=== PATIENT | male | born 1955 | race Caucasian/White ===

== ENCOUNTER 2018-10-08 13:40 | Emergency (ER) | payer MEDICARE ==
[~2018-10-08] VITALS: Ht 172.7 cm; Wt 88.5 kg
--- NOTE | 2018-10-08 14:00 | NUR ---
Assessment performed @ 1400. Documented at 1600.
--- NOTE | 2018-10-08 15:21 | Diagnostic Imaging Report ---
CT BRAIN [facility] HISTORY: Headache, right-sided numbness COMPARISON: None. TECHNIQUE: Noncontrast axial scans were obtained from skull base to the vertex. Coronal and sagittal reconstructions obtained from the axial data. One or more of the following dose reduction techniques were used: Automated exposure control, adjustment of the mA and/or kV according to patient size, and/or utilization of iterative reconstruction technique. Beam hardening artifacts obscure some details. DISCUSSION: Scalp/Skull: Unremarkable. Brain sulci: Appropriate for patient's age. Ventricles: Normal in size and configuration. No hydrocephalus. Extra-axial spaces: No masses or fluid collections. Carotid siphon calcifications are present. Parenchyma: Small focal hypodensity along the anterior left thalamus may be due to age indeterminate lacunar infarct. Prominent perivascular spaces are seen along the basal ganglia, left greater than right. Mild periventricular white matter hypodensities are likely chronic microvascular ischemic changes. Otherwise, no masses, hemorrhage, or large vascular territory acute infarct. Dural sinuses: No abnormal densities. Sellar/Suprasellar region: Intact. Skull base: Intact. Incidental findings: Minimal polypoid mucosal thickening is seen in the right maxillary and right sphenoid sinus. IMPRESSION: 1. Small focal hypodensity along the anterior left thalamus may be due to age indeterminate lacunar infarct. 2. Otherwise, no acute intracranial abnormalities. 3. Mild supratentorial chronic microvascular ischemic change. Signed by: Dr. Rajesh Carlton M.D. on 10/08/2018 3:18 PM
[2018-10-08] MEDS ORDERED: CLONIDINE HCL 0.2 MG TAB PO ONE (16:15)
--- NOTE | 2018-10-08 17:52 | NUR ---
B/P elevated. ERP notified, and is ok to discharge
[2018-10-08 18:07] VITALS: BP 151/105
== END 2018-10-08 18:12 | disposition home or self-care (01) ==
LOC: FSED 13:40
DX: G51.0 Bell's palsy (principal)
CPT/HCPCS: 70450; 99283